=== PATIENT | male | born 1950 | race Hispanic/Latino ===

== ENCOUNTER 2018-09-06 17:27 | Observation (INO) | payer MEDICARE, OTHER ==
[~2018-09-06] VITALS: Ht 160 cm; Wt 74.0 kg
--- OUTSIDE RECORDS SUMMARY | 2018-09-06 17:30 | XMS REPORT | Clinical Summary ---
Author Author EYAD [facility] Address Unknown Phone Unavailable Care Team Providers Care Gemologist Name Role Phone Pcp, No PCP Unavailable Allergies No Known Allergies Medications End Date Status Medication Sig Dispensed Refills Start Date Active gabapentin (NEURONTIN) Take 300 mg 0 300 MG capsule by mouth daily. Active furosemide (LASIX) 40 MG Take 40 mg by 0 tablet mouth 2 (two) times daily. Active fenofibrate (TRICOR) 145 Take 145 mg 0 MG tablet by mouth daily. Active hydrALAZINE (APRESOLINE) Take 100 mg 0 100 MG tablet by mouth 2 (two) times daily. Active atorvastatin (LIPITOR) 40 Take 40 mg by 0 MG tablet mouth daily. Active labetalol (NORMODYNE) 300 Take 300 mg 0 MG tablet by mouth 2 (two) times daily. Active mirabegron (MYRBETRIQ Take 1 tablet 0 ORAL) by mouth daily. Active tamsulosin (FLOMAX) 0.4 Take 0.4 mg 0 mg Cap 24 hr capsule by mouth daily. Active aspirin 81 MG EC tablet Take 81 mg by 0 mouth daily. Active minoxidil (LONITEN) 2.5 Take 2.5 mg 0 MG tablet by mouth daily. Active paricalcitol (ZEMPLAR) 1 Take 1 mcg by 0 MCG capsule mouth daily. Active phentermine 30 MG capsule Take 100 mg 0 by mouth every morning 4 tabs q HS . Active levothyroxine (SYNTHROID, Take 100 mcg 0 LEVOTHROID) 100 MCG by mouth tablet Every morning on an empty stomach. Active Problems Not on file Encounters Care Team Description Date Type Specialty April Bey 08/23/2018 Abstract Transplant Cat Quan RN 07/26/2018 Documentation Transplant Da Alvarenga II, MD Timmins, Katherine S., MD Pre-transplant evaluation for chronic kidney disease (Primary Dx) 07/22/2018 Evaluation Transplant Cat Beyjulio 06/24/2018 Abstract Transplant Sotero April 06/23/2018 Abstract Transplant after 09/05/2017 Family History Medical History Relation Name Comments Diabetes Brother Kidney disease Brother No Known Problem Father No Known Problem Mother No Known Problem Sister Diabetes Sister Relation Name Status Comments Brother Alive Father Mother Sister Alive Sister Social History Date Tobacco Use Types Packs/Day Years Used Former Smoker Smokeless Tobacco: Never Used Comments: smoked 10 years, stopped 40 years ago Alcohol Use Drinks/Week oz/Week Comments No Alcohol Habits Answer Date Recorded How often do you have a drink containing alcohol? Never 07/22/2018 How many drinks containing alcohol do you have on Not asked a typical day when you are drinking? How often do you have six or more drinks on one Not asked occasion? Sex Assigned at Date Recorded Not on file Industry Job Start Date Occupation Not on file Not on file Not on file Travel End Travel History Travel Start No recent travel history available. Last Filed Vital Signs Time Taken Vital Sign Reading 07/22/2018 3:19 PM CONVERTIBLE TOP INSTALLER Blood Pressure 148/61 07/22/2018 3:19 PM CONVERTIBLE TOP INSTALLER Pulse 69 07/22/2018 3:19 PM CONVERTIBLE TOP INSTALLER Temperature 36.5 C (97.7 F) 07/22/2018 3:19 PM CONVERTIBLE TOP INSTALLER Respiratory Rate 18 07/22/2018 3:19 PM CONVERTIBLE TOP INSTALLER Oxygen Saturation 98% - Inhaled Oxygen - Concentration 07/22/2018 3:19 PM CONVERTIBLE TOP INSTALLER Weight 73.6 kg (162 lb 3.2 oz) 07/22/2018 3:19 PM CONVERTIBLE TOP INSTALLER Height 167.6 cm (5' 6") 07/22/2018 3:19 PM CONVERTIBLE TOP INSTALLER Body Mass Index 26.18 Plan of Treatment Not on file Results Not on fileafter 09/05/2017 Insurance Payer Benefit Subscriber ID Type Phone Address Plan / Group [employer] xxxxxxxx Transplant MEDICARE [facility] WELLCARE xxxxxxxx CARE [facility]
--- OUTSIDE RECORDS SUMMARY | 2018-09-06 17:30 | XMS REPORT ---
Author Author [facility] Address Unknown Phone Unavailable Care Team Providers Care Window Draper Name Role Phone Unavailable Unavailable Payers Payer Name Policy Type Policy Number Effective Date Expiration Date Problems This patient has no known problems. Allergies, Adverse Reactions, Alerts Allergy Name Allergy Type Status Severity Reaction(s) Onset Date Inactive Date Treating Clinician Comments No Known Allergies DA Active U 2018-03-22 00:00:00 Medications This patient has no known medications.
[2018-09-06 18:19] LABS: BASOPHILS % 0.9 % (0.0-1.0); EOSINOPHILS # (AUTO) 0.2 (0.0-0.4); EOSINOPHILS % 4.2 % (0.0-6.0); HEMATOCRIT 21.4 % (38.2-49.6); LYMPHOCYTES % 22.6 % (18.0-39.1); MEAN CORPUSCULAR HGB CONC 32.7 g/dL (31-35); MEAN CORPUSCULAR VOLUME 97.7 fL (81-99); MONOCYTES # (AUTO) 0.6 (0.2-0.8); MONOCYTES % 13.2 % (4.4-11.3); NEUTROPHILS # (AUTO) 2.5 (2.1-6.9); NEUTROPHILS % 58.6 % (38.7-80.0); PLATELET COUNT 230 x10e3/uL (140-360); RED BLOOD COUNT 2.19 x10e6/uL (4.3-5.7); RED CELL DISTRIBUTION WIDTH 14.6 % (11.7-14.4)
[2018-09-06] MEDS ORDERED: FUROSEMIDE40 MG PO (18:30)
[2018-09-06] MEDS ORDERED: ZEMPLAR1 MCG PO (18:30)
[2018-09-06] MEDS ORDERED: LABETALOL HCL100 MG PO (18:30)
[2018-09-06] MEDS ORDERED: ATORVASTATIN CA20 MG PO (18:30)
[2018-09-06] MEDS ORDERED: DILANTIN100 MG PO (18:30)
[2018-09-06] MEDS ORDERED: HYDRALAZINE HCL25 MG PO (18:30)
[2018-09-06] MEDS ORDERED: MINOXIDIL2.5 MG PO (18:30)
[2018-09-06] MEDS ORDERED: NOVOLOG100 UNIT/1 (18:30)
[2018-09-06] MEDS ORDERED: LEVOTHYROXINE50 MCG PO (18:30)
[2018-09-06] MEDS ORDERED: FERROUS SULFAT325 M1 PO (18:30)
[2018-09-06] MEDS ORDERED: MYRBETRIQ25 MG PO (18:30)
[2018-09-06] MEDS ORDERED: TAMSULOSIN HCL0.4 MG PO (18:30)
[2018-09-06] MEDS ORDERED: FENOFIBRATE145 MG PEG (18:30)
[2018-09-06] MEDS ORDERED: GABAPENTIN300 MG PO (18:30)
[2018-09-06 18:34] LABS: ALBUMIN/GLOBULIN RATIO 1.5 (0.8-2.0); ANION GAP 15.7 mmol/L (8-16); CREATININE, SERUM 4.31 mg/dL (0.72-1.25); POTASSIUM 4.7 mmol/L (3.5-5.1)
--- NOTE | 2018-09-06 19:00 | NUR ---
Report to Mejia Velazquez RN.
[2018-09-06] MEDS ORDERED: DEXTROSE 50% SYRINGE 50 ML IV PRN (20:45)
--- OUTSIDE RECORDS SUMMARY | 2018-09-06 20:45 | XMS REPORT | Clinical Summary ---
Author Author EYAD [facility] Address Unknown Phone Unavailable Care Team Providers Care Plastic Welding Machine Operator Name Role Phone Pcp, No PCP Unavailable [...] Taken Vital Sign Reading 07/22/2018 3:19 PM ECHOCARDIOGRAPHY TECHNOLOGIST Blood Pressure 148/61 07/22/2018 3:19 PM ECHOCARDIOGRAPHY TECHNOLOGIST Pulse 69 07/22/2018 3:19 PM ECHOCARDIOGRAPHY TECHNOLOGIST Temperature 36.5 C (97.7 F) 07/22/2018 3:19 PM ECHOCARDIOGRAPHY TECHNOLOGIST Respiratory Rate 18 07/22/2018 3:19 PM ECHOCARDIOGRAPHY TECHNOLOGIST Oxygen Saturation 98% - Inhaled Oxygen - Concentration 07/22/2018 3:19 PM ECHOCARDIOGRAPHY TECHNOLOGIST Weight 73.6 kg (162 lb 3.2 oz) 07/22/2018 3:19 PM ECHOCARDIOGRAPHY TECHNOLOGIST Height 167.6 cm (5' 6") 07/22/2018 3:19 PM ECHOCARDIOGRAPHY TECHNOLOGIST Body Mass Index 26.18 Plan of Treatment Not on file Results Not on fileafter 09/05/2017 Insurance Payer Benefit Subscriber ID Type Phone Address Plan / Group [employer] - [employer] xxxxxxxx Transplant MEDICARE MGD CARE NON-[facility] WELL[facility] xxxxxxxx CARE [facility]
[2018-09-06 21:35] VITALS: BP 193/76
[2018-09-06 21:59] VITALS: BP 193/76
[2018-09-06] MEDS: INSULIN REGULAR, HUMAN 100 UNIT/1 ML 3ML VIAL SQ SCH (23:25)
[2018-09-06] MEDS: HYDRALAZINE HCL 25 MG TAB PO SCH (23:25)
[2018-09-06] MEDS: LABETALOL HCL 100 MG TAB PO SCH (23:25)
[2018-09-06] MEDS ORDERED: SODIUM CHLORIDE 0.9% 250ML 250 ML ONE (23:36)
--- NOTE | 2018-09-06 23:45 | NUR ---
Pt admitted to room 178 via wheelchair. Pt Alert and orient to name and place. Greenlandic speaking only. Skin warm, dry, and intact. 20g IV right AC, flushed with 10ml NS. Denies pain or discomfort. Resp even and unlabored. Cap refill <3 secs. AROM x4 extremities. Ambulates with cane. +2 equal bilateral hand shirt creaser. VS stable. BM today. Oriented to room. Call ling within reach. Bed low and in locked position. Will continue to monitor.
[2018-09-07] VITALS (9 sets, daily range): BP systolic 144–199; BP diastolic 59–86
[2018-09-07] MEDS ORDERED: SODIUM CHLORIDE 0.9% 250ML 250 ML ONE ×2 (02:51→06:19)
--- NOTE | 2018-09-07 07:25 | NUR ---
BLOOD TRANSFUSION IN PROGRESS, NO ADVERSE REACTION OBSERVED. PATIENT IN BED RESTING WITH NO RESPIRATORY DISTRESS. BED IN LOWER POSITION, CALL LIGHT AT REACH. FAMILY AT BED SIDE.
[2018-09-07] MEDS: INSULIN REGULAR, HUMAN 100 UNIT/1 ML 3ML VIAL SQ SCH ×4 (07:30→21:12)
[2018-09-07] MEDS: INSULIN LISPRO 100 UNIT/1 ML 3ML VIAL SQ SCH ×3 (07:30→16:30)
[2018-09-07] MEDS ORDERED: MINOXIDIL 2.5 MG TAB PO SCH (09:00)
[2018-09-07] MEDS ORDERED: NON-FORMULARY MEDICATION (Paricalcitol (Zemplar) 1 MCG) PO SCH (09:00)
[2018-09-07] MEDS ORDERED: FUROSEMIDE 40 MG TAB PO SCH ×2 (09:00→17:00)
[2018-09-07] MEDS: (Mirabegron (Myrbetriq) 25 MG) PO SCH (09:00)
[2018-09-07] MEDS ORDERED: LEVOTHYROXINE SODIUM 50 MCG TAB PO SCH (09:00)
--- NOTE | 2018-09-07 09:15 | NUR ---
THIRD UNIT OF BLOOD COMPLETED AT THIS TIME. NO ADVERSE REACTION OBSERVED. WILL CLOSELY MONITOR.
[2018-09-07] MEDS: HYDRALAZINE HCL 25 MG TAB PO SCH ×2 (09:17→17:02)
[2018-09-07] MEDS: GABAPENTIN 300 MG CAP PO SCH (09:18)
[2018-09-07] MEDS: LABETALOL HCL 100 MG TAB PO SCH ×2 (09:18→17:03)
--- NOTE | 2018-09-07 09:37 | History and Physical ---
PRIMARY CARE PROVIDER: Dr. Ramon Kincaid FRESH MEAT GRADER: Dr. Mariela Romero CHIEF COMPLAINT: Symptomatic anemia. Hemoglobin and hematocrit of 7 and 21.4. End-stage renal disease. Will require dialysis. SUMMARY: A 68-year-old male with end-stage renal disease. Will need dialysis. The patient is anemic chronically with hemoglobin and hematocrit 7 and 21.4. The patient at baseline with multiple chronic medical problems. The patient is otherwise stable at this time. He had hypertensive urgency, but medication will be given. The patient is otherwise stable. PAST MEDICAL HISTORY: Chronic kidney disease, now end-stage renal disease. Will require initiation of dialysis. Chronic anemia, symptomatic, hypertension, dyslipidemia, hypothyroidism, diabetes, type 2, on insulin therapy, enlarged prostate, history of seizure disorder. PAST SURGICAL HISTORY: Appendectomy, esophageal dilatation and TURP. SOCIAL HISTORY: Patient does not smoke or use alcohol. He lives with his family. ALLERGIES: NO KNOWN ALLERGIES. HOME MEDICATIONS: Lipitor, fenofibrate, ferrous sulfate, Lasix, gabapentin, hydralazine, NovoLog insulin sliding scale, labetalol, levothyroxine, minoxidil, Myrbetriq, Zemplar, Dilantin, and Flomax. REVIEW OF SYSTEMS: Fatigued but no chest pain. No shortness of breath. No abdominal pain. No shortness of breath at rest, but exertional shortness of breath. PHYSICAL EXAMINATION VITAL SIGNS: Temperature is 97, blood pressure 199/84, pulse rate 64, respirations 18. GENERAL: The patient is not in acute distress. He is awake. HEENT: Normocephalic, atraumatic and anicteric. NECK: Supple grossly. PULMONARY: Diminished breath sounds. CARDIOVASCULAR: S1 and S2. Regular rate and rhythm. ABDOMEN: Soft. EXTREMITIES: No cyanosis or edema. NEUROLOGIC: No focal deficit. LABORATORY: WBC is 4.2, hemoglobin 7, hematocrit 21.4, and platelets is 230,000. Chemistry: Sodium 139, potassium 4.7, chloride 100, bicarb is 28, BUN 91, creatinine 4.3, glucose is 97. No chest x-ray. IMPRESSION 1. End-stage renal disease: Will need to initiate dialysis. Dr. Mariela Romero consulted. 2. Chronic anemia: Blood transfusion ordered. PLAN: Blood transfusion. Initiated on dialysis. Chest x-ray. Resume some home medications. Insulin sliding scale coverage. Blood pressure control. Job#: [id number] RI
[2018-09-07] MEDS: LEVOTHYROXINE SODIUM 100 MCG TAB PO SCH (10:11)
[2018-09-07] MEDS: PARICALCITOL 1 MCG CAPSULE PO SCH (10:11)
[2018-09-07] MEDS: TAMSULOSIN HCL 0.4 MG CAP PO SCH (10:12)
[2018-09-07] MEDS: FENOFIBRATE 145 MG TAB PEG SCH (10:12)
[2018-09-07] MEDS ORDERED: HYDRALAZINE HCL 20 MG/ML VIAL IV PRN (11:30)
[2018-09-07] MEDS ORDERED: EPOETIN ALFA 10000 UNIT/ML VIAL SC ONE (11:30)
--- NOTE | 2018-09-07 11:32 | NUR ---
PATIENT NOTED WITH ELEVATED BLOOD PRESSURE, MD NOTIFIED. NEW ORDER RECEIVED.
--- NOTE | 2018-09-07 13:40 | NUR ---
Visit made by the Spiritual Care Department Pastoral Visitor, Siria Tao. PV provided pastoral presence, prayer, hospitality, and supportive listening. Pastoral Visitor informed pt/family of the scope of Pull Socket Assembler Services and availability. SAMANTHA COHN Applications Processor Spiritual Care Department O: [phone] Pager: [phone] ([phone] number calling from)
--- NOTE | 2018-09-07 14:14 | NUR ---
PATIENT NOTED WITH B/P OF 211/86. PRN HYDRALAZINE GIVEN, B/P RECHECKED WITH THE READING OF 168/79. WILL CONTINUE TO MONITOR
--- NOTE | 2018-09-07 14:54 | NUR ---
Nutrition Intervention Note RD Recommendation(s) for Physician: -Rec adding ADA to renal diet as medically appropriate -Rec Nepro BID due to hx of weight loss -RD will return to provide diet education when pt start on dialysis (Please consult) Plan of Care: RD following, monitoring for tolerance and adequacy, ONS rec Nutrition reason for involvement: Nutrition Risk Trigger- [facility] RD Assessment 09/07- Chart reviewed. 68yo M, who is admitted for symptomatic anemia. Possible new dialysis. Renal consulted. Visited pt in the room. Pt reported fair appetite with 50-100% recorded meal intake. No GI complains noted. LBM 09/07. No chewing or swallowing difficulty noted. Pt reports of 5-7lb weight loss within the last 6 months. Pt states I dont know why I am losing weight. I eat like normal. No recent change in diet or lifestyle noted. No physical sign of fat or muscle loss upon NFPA. Will continue to monitor and follow. Principal Problems/Diagnoses: ESRD, anemia PMH: Chronic kidney disease, chronic anemia, symptomatic, hypertension, dyslipidemia, hypothyroidism, diabetes, type 2, on insulin therapy, enlarged prostate, history of seizure disorder GI: abdomen soft, non-tender, LBM 09/07 Skin: intact Labs: (09/06) BUN 91H, Creatinine 4.31 H Meds: reviewed Ht: 63in Wt: 163.25lb BMI: 28.9kg/m2 IBW: 124lb Malnutrition Evaluation (09/07/18) The patient does not meet criteria for a specified degree of malnutrition at this time. Will re-evaluate at follow-up as appropriate. Nutrition Prescription (Diet Order): renal diet Diet Adequacy: N/A Diet Education Needs Assessment: Diet education indicated, but patient not appropriate for education at this time. Nutrition Care Level: low Nutrition Diagnosis: Increased protein needs related to chronic illness as evidenced by 5-7lbs weight loss in 6 months and possible requiring HD. Goal: Patient will meet 75-100% of estimated needs by follow up Progress: N/A Interventions: Mineral-modified diet, Commercial beverage Monitoring/Evaluation: Total energy intake, Total protein intake, Modified diet, Liquid supplement, Weight change Signed: Mary Lezama MS, RD, LD
--- NOTE | 2018-09-07 15:50 | Consultation ---
DATE OF CONSULTATION: September 07, 2018 NEPHROLOGY CONSULTATION REQUESTING PHYSICIAN: Dr. Hayden. REASON FOR CONSULTATION: CKD. Thank you for allowing us to participate in Mr. Shah's care. HISTORY OF PRESENT ILLNESS: This is a 68-year-old male now with established CKD stage 4 to 5. Creatinine last year was 4.2 to 3.8. Came in with symptoms, worsening hemoglobin. Because the hemoglobin was 7, potential for problems including debility and fatigue which he has had. He was asked to come to the ER where this was confirmed. He got three units of PRBCs. His blood pressure has been quite high. Creatinine here is about 4.3, estimated GFR of 14 assuming steady state. Serum CO2 is 28. He is on low-dose diuretics. He, himself, is reluctant for emergency dialysis, which I do not think he really needs, however, given that he is not uremic as such. However, he does need to begin preparations for dialysis, namely get vein-mapping and a vascular surgery consult. I do not think he is a good PD candidate given his reluctance to joint the ESRD program. PAST HISTORY: Significant for 1. CKD, probably stage 5. 2. Anemia of CKD. 3. Type 2 diabetes and hypertension leading to number 1. 4. History of seizures. 5. Benign prostatic hypertrophy. 6. Appendectomy. 7. TURP. 8. Secondary hyperparathyroidism. SOCIAL HISTORY: He does not abuse alcohol or smoke. FAMILY HISTORY: Hypertension. CURRENT MEDICATIONS 1. Tamsulosin 0.4 nightly. 2. Lasix 40 b.i.d. 3. Fenofibrate 145 mg a day. 4. Paricalcitol 1 mcg a day. 5. Levothyroxine 100 mcg a day. 6. Gabapentin 300 mg daily. 7. Labetalol 300 b.i.d. 8. Hydralazine 100 b.i.d. 9. Insulin as directed by General Medicine. 10. Minoxidil 5 mg once a day. 11. Dilantin 400 nightly. REVIEW OF SYSTEMS CONSTITUTIONAL: Some weakness. NEUROLOGIC: Some weakness. GI: Denies nausea or vomiting. : Continues to make urine. MUSCULOSKELETAL: Occasional arthralgias. CARDIAC: No angina or syncope. RESPIRATORY: Denied cough or hemoptysis. REST OF REVIEW: Negative. PHYSICAL EXAMINATION GENERAL: Sitting up. No distress. VITAL SIGNS: Temperature is 98.9. Blood pressure 198/81. Pulse is 70. HEENT: Atraumatic. NECK: No JVD. CHEST: Clear. Bilateral breath sounds are equal. CARDIAC: Normal heart tones. S4 is present. EXTREMITIES: No edema. ABDOMEN: Benign. Hemoglobin is 7. Potassium is 4.7. Serum CO2 20. BUN 91. Creatinine is 4.2. Estimated GFR 24. ASSESSMENT 1. Chronic kidney disease 5. 2. Hypertension, not at goal. 3. Underlying diabetic hypertensive end-organ damage. 4. Volume overload is controlled. PLAN 1. Increase minoxidil to 5 mg b.i.d. 2. Add hydralazine p.r.n. 3. Agree with blood transfusion. 4. One dose Epogen. I did have a long talk about the initiation of dialysis. As such he is not uremic nor is he fluid-overloaded clinically. However, as we bring the blood pressure down I expect the true GFR to track much lower due to loss of renal blood flow regulation. I did make him aware of this. 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 He currently remains resistant to the idea of doing anything. As such would wait until chemistry is back tomorrow and better blood pressure control, however. At this point would hold off on catheter placement. The other issue is shelter. He is better off if he starts with an AV access unless clinical situation really deteriorates. Will follow along. Complicated situation. Sincerely, Job#: [id number] EV
[2018-09-07] MEDS: MINOXIDIL 2.5 MG TAB PO SCH (17:02)
[2018-09-07] MEDS: FUROSEMIDE 20 MG TAB PO SCH (17:02)
--- NOTE | 2018-09-07 19:02 | NUR ---
Report received and walking rounds complete. Pt A&O and in no apparent distress. Pt persian speaking. All safety measures ensured and pt call ling near. Pt encouraged to use call ling for assistance.
[2018-09-07] MEDS ORDERED: PHENYTOIN SODIUM EXT REL 100 MG CAP PO SCH (21:00)
[2018-09-07] MEDS ORDERED: ATORVASTATIN 20 MG TAB PO SCH (21:00)
[2018-09-07] MEDS ORDERED: ATORVASTATIN 40 MG TAB PO SCH (21:00)
--- NOTE | 2018-09-07 22:13 | NUR ---
Report given to OVIDIO Barnett for pt transferring from 178 to room 111.
--- NOTE | 2018-09-07 22:20 | NUR ---
PATIENT RECEIVED FROM OBSERVATION UNIT IN STABLE CONDITION. NO RESPIRATORY DISTRESS OBSERVED, HE DENIES PAIN. SKIN INTEGRITY INTACT, NO EDEMA NOTED TO THE EXTREMITIES. PATIENT IS RUSSIAN SPEAKING WITH VERY MINIMAL CROATIAN, PRIMARY NURSE SPEAKS A LITTLE RUSSIAN TO COMMUNICATE WITH THE PATIENT. BED ALARM ON, CALL LIGHT WITHIN EASY REACH, HIS IS AT THE BEDSIDE.
--- NOTE | 2018-09-08 00:33 | NUR ---
PATIENT ASSISTED TO THE RESTROOM, HE'S NOW BACK IN BED WITH BED ALARM ON AND CALL LIGHT WITHIN EASY REACH.
[2018-09-08 04:00] VITALS: BP 148/67
--- NOTE | 2018-09-08 04:05 | NUR ---
PATIENT IS ASLEEP, HE'S EASY TO AROUSE. NO DISTRESS OBSERVED, HE DENIES PAIN.
[2018-09-08 05:45] LABS: BASOPHILS # (AUTO) 0.1 (0.0-0.1); BASOPHILS % 0.8 % (0.0-1.0); EOSINOPHILS # (AUTO) 0.1 (0.0-0.4); EOSINOPHILS % 1.6 % (0.0-6.0); HEMATOCRIT 31.1 % (38.2-49.6); HEMOGLOBIN 10.7 g/dL (14.0-18.0); LYMPHOCYTES % 15.2 % (18.0-39.1); MEAN CORPUSCULAR HEMOGLOBIN 31.1 pg (28-32); MEAN CORPUSCULAR HGB CONC 34.4 g/dL (31-35); MEAN CORPUSCULAR VOLUME 90.4 fL (81-99); MONOCYTES # (AUTO) 0.7 (0.2-0.8); MONOCYTES % 11.7 % (4.4-11.3); NEUTROPHILS # (AUTO) 4.4 (2.1-6.9); NEUTROPHILS % 69.9 % (38.7-80.0); PLATELET COUNT 201 x10e3/uL (140-360); RED BLOOD COUNT 3.44 x10e6/uL (4.3-5.7); RED CELL DISTRIBUTION WIDTH 15.2 % (11.7-14.4)
[2018-09-08 06:03] LABS: ANION GAP 16.5 mmol/L (8-16); CALCIUM 8.9 mg/dL (8.4-10.2); CREATININE, SERUM 3.86 mg/dL (0.72-1.25); POTASSIUM 3.5 mmol/L (3.5-5.1)
[2018-09-08] MEDS: LEVOTHYROXINE SODIUM 100 MCG TAB PO SCH (06:12)
[2018-09-08 06:19] LABS: PHOSPHORUS 4.8 MG/DL (2.3-4.7)
--- NOTE | 2018-09-08 06:39 | Diagnostic Imaging Report ---
CHEST SINGLE (PORTABLE), 09/08/2018 5:00 AM Technique: CHEST SINGLE (PORTABLE) Comparison: None available. Clinical history: Shortness of breath Findings: See Impression Impression: 1. Lines/Tubes: None 2. Mildly enlarged cardiac silhouette, accentuated by portable technique. Aortic calcifications. 3. No consolidation or edema. No effusion or pneumothorax. Signed by: Dr Tabitha Malone MD on 09/08/2018 6:36 AM
[2018-09-08] MEDS: INSULIN REGULAR, HUMAN 100 UNIT/1 ML 3ML VIAL SQ SCH ×2 (07:30→12:02)
--- NOTE | 2018-09-08 07:31 | NUR ---
Received patient and walking rounds complete. Patient awake resting in bed no signs of distress. Bed in lowest position, wheels locked, side rails up x2, call light in reach. Will continue to monitor.
[2018-09-08 08:17] VITALS: BP 156/67
[2018-09-08] MEDS: INSULIN LISPRO 100 UNIT/1 ML 3ML VIAL SQ SCH ×2 (08:49→12:02)
[2018-09-08] MEDS: FENOFIBRATE 145 MG TAB PEG SCH (08:49)
[2018-09-08] MEDS: TAMSULOSIN HCL 0.4 MG CAP PO SCH (08:49)
[2018-09-08] MEDS: HYDRALAZINE HCL 25 MG TAB PO SCH (08:49)
[2018-09-08] MEDS: PARICALCITOL 1 MCG CAPSULE PO SCH (08:50)
[2018-09-08] MEDS: LABETALOL HCL 100 MG TAB PO SCH (08:50)
[2018-09-08] MEDS: GABAPENTIN 300 MG CAP PO SCH (08:50)
[2018-09-08] MEDS: MINOXIDIL 2.5 MG TAB PO SCH (08:50)
[2018-09-08] MEDS: FUROSEMIDE 20 MG TAB PO SCH (08:50)
[2018-09-08] MEDS: (Mirabegron (Myrbetriq) 25 MG) PO SCH (09:47)
--- NOTE | 2018-09-08 10:41 | NUR ---
Paged Dr. Long regarding patient refusal of dialysis.
--- NOTE | 2018-09-08 10:51 | Progress Note ---
DATE: September 08, 2018 Got his blood. Feels well. No dyspnea. No uremic symptoms. Blood pressure is coming down to the 150s to 160s after the minoxidil increased. PHYSICAL EXAMINATION VITAL SIGNS: Temperature 97.8, pulse 69, blood pressure 156/67. CHEST: Clear. EXTREMITIES: No edema. ABDOMEN: Benign. NEURO: Alert, appropriate. Speech is normal. LABS: Hemoglobin is up to 10.7, K is 3.5, creatinine 3.86, BUN 80. ASSESSMENTS 1. Chronic kidney disease stage 4 to 5. 2. Diabetic and hypertensive end-organ damage. 3. Anemia of chronic kidney disease, now corrected with transfusion. Got one dose of erythropoietic stimulating agent. PLAN: From a renal standpoint, no urgent dialysis. Encouraged to follow up in the office. Did bring up that he needs to consider early access placement as that is current standard of care. Questions were answered. Will follow along. Job#: [id number] REGGIE
[2018-09-08 10:52] VITALS: BP 156/67
[2018-09-08] MEDS ORDERED: NIFEDIPINE ER30 MG PO (11:10)
--- NOTE | 2018-09-08 11:40 | NUR ---
Removed patients IV. Catheter tip intact and pressure dressing applied.
--- NOTE | 2018-09-08 12:01 | NUR ---
Patient discharged from facility. Patient gathered all personal belongings, discharge instructions, follow up information, and after home care. No signs of distress during discharge. Left unit in wheelchair and went home via private auto with spouse.
[2018-09-08 12:10] VITALS: BP 153/70
--- NOTE | 2018-09-08 15:23 | Discharge Summary ---
PRIMARY CARE PHYSICIAN: Dr. Ramon Kincaid CONSULTANTS: Abiodun Long MD FINAL DIAGNOSES 1. Status post blood transfusion due to symptomatic chronic anemia secondary to chronic kidney disease, end-stage renal disease. 2. End-stage renal disease. Patient refused dialysis for now and wants to decide later. SUMMARY: This 68-year-old male came in severely anemic and symptomatic. Hemoglobin was 7 and hematocrit 21.4. Patient's BUN and creatinine were 91 and 4.3. He does have stage-5 end-stage renal disease and requires dialysis, but the patient does not want dialysis now. He also had hypertensive urgency. The patient is stable. Blood pressure is much better controlled. Adjustments in his blood pressure medication include Minoxidil 5 mg twice a day, stop hydralazine, start on nifedipine ER 60 mg daily. The patient is to follow up with Dr. Abiodun Long as outpatient for decision on dialysis. Again, the patient is status post 3 units blood transfusion. He is stable. Resume home medications with the above adjustments. Job#: [id number] cc:RAMON KINCAID MD
== END 2018-09-08 12:01 | disposition home or self-care (01) ==
LOC: ER 17:27 → ERHOLD 20:43 → IMCU 21:43 → MED/SURG 09-07 22:20
PROVIDERS: ADMIT Internal Medicine; ATTEND Internal Medicine
DX: E11.22 Type 2 diabetes mellitus with diabetic chronic kidney disease (principal); I12.0 Hypertensive chronic kidney disease with stage 5 chronic kidney disease or end stage renal disease; N18.6 End stage renal disease; D63.1 Anemia in chronic kidney disease; E78.5 Hyperlipidemia, unspecified; Z83.3 Family history of diabetes mellitus; Z82.49 Family history of ischemic heart disease and other diseases of the circulatory system; I16.0 Hypertensive urgency; Z79.4 Long term (current) use of insulin
CPT/HCPCS: 36415 ×3; 36430; 71045; 80048; 80053; 82575; 82948 ×3; 83036; 83970; 84100; 84443; 84550; 85025 ×2; 86850; 86900; 86920; 99284; G0378 ×3; J0360; J1817 ×2; J7050 ×2; P9016 ×2; Q4081